=== PATIENT | female | born 1990 | race Caucasian/White ===

== ENCOUNTER 2024-03-29 17:28 | Outpatient (CLI) | payer BC, SELFPAY | END 2024-03-29 17:29 | disposition home or self-care (01) | LOC: NFLDREF 17:29 | PROVIDERS: PCP Family Medicine; Visit Provider Registered Nurse | DX: Z34.83 Encounter for supervision of other normal pregnancy, third trimester (principal) | CPT/HCPCS: 86592 ==

== ENCOUNTER 2024-04-13 15:52 | Outpatient (CLI) | payer BC, SELFPAY ==
--- NOTE | 2024-04-13 16:00 | CRLHL7_ITS ---
For Patients: As a result of the Century Cures Act, medical imaging exams and procedure reports are released immediately into your electronic medical record. You may view this report before your referring provider. If you have questions, please contact your health care provider. INDICATION: Third trimester scan, evaluate growth. low maternal weight gain COMPARISON: 11/03/2023 TECHNIQUE: Real time dickerson scale imaging of the fetus was performed. FINDINGS: Sonographic imaging demonstrates a single living intrauterine gestation. Fetus demonstrates a regular cardiac rate of 135 beats per minute. Fetus has a vertex position. The placenta lies posteriorly. Amniotic fluid volume appears normal and there is a single deepest vertical pocket: 7.3 cm. The estimated weight is 2122gm which lies at the 86th %. BPD 42nd percentile. HC is 65th percentile. AC greater than 97th percentile. FL 41st percentile. The HC/AC ratio measures 1.00 range (0.96-1.12). IMPRESSION: Sonographic gestational age 32 weeks 5 days and sonographic due date is 06/03/2024. Sonographic age 8 days ahead of the clinical age. Estimated weight 86th percentile. Abdominal circumference greater than 97th percentile. Dictated by Tom Yañez MD @ 04/15/2024 1:39:37 PM (Electronically Signed)
== END 2024-04-13 15:53 | disposition home or self-care (01) ==
LOC: US 15:53
PROVIDERS: PCP Family Medicine; Visit Provider Obstetrics & Gynecology
DX: O26.13 Low weight gain in pregnancy, third trimester (principal); Z3A.32 32 weeks gestation of pregnancy
CPT/HCPCS: 76816

== ENCOUNTER 2024-04-28 11:37 | Outpatient (CLI) | payer BC, SELFPAY | END 2024-04-28 11:38 | disposition home or self-care (01) | LOC: NFLDREF 05-02 21:02 | PROVIDERS: PCP Family Medicine; Referring Provider Family Medicine; Visit Provider Obstetrics & Gynecology | DX: D64.9 Anemia, unspecified (principal) | CPT/HCPCS: 82728 ==

== ENCOUNTER 2024-05-12 11:19 | Outpatient (CLI) | payer BC, SELFPAY ==
[2024-05-13 12:54] LABS: Strep B DNA Probe Negative (Negative)
[2024-05-13 12:59] LABS: Strep B Susceptibility Needed? No
== END 2024-05-12 11:20 | disposition home or self-care (01) ==
LOC: NFLDREF 11:20
PROVIDERS: PCP Family Medicine; Visit Provider Obstetrics & Gynecology
DX: Z34.93 Encounter for supervision of normal pregnancy, unspecified, third trimester (principal); Z3A.35 35 weeks gestation of pregnancy
CPT/HCPCS: 87081; 87653

== ENCOUNTER 2024-05-20 09:49 | Outpatient (CLI) | payer BC, SELFPAY | END 2024-05-20 09:50 | disposition home or self-care (01) | LOC: RAD 09:51 | PROVIDERS: PCP Family Medicine; Visit Provider Obstetrics & Gynecology | DX: I35.8 Other nonrheumatic aortic valve disorders (principal) | CPT/HCPCS: 93306 ==

== ENCOUNTER 2024-05-27 17:53 | Outpatient (CLI) | payer BC, SELFPAY ==
--- NOTE | 2024-05-27 18:10 | CRLHL7_ITS ---
For Patients: As a result of the Century Cures Act, medical imaging exams and procedure reports are released immediately into your electronic medical record. You may view this report before your referring provider. If you have questions, please contact your health care provider. INDICATION: Follow-up from clinic. Non reassuring testing and stress test. COMPARISON: OB ultrasound 04/13/2024. TECHNIQUE: Ultrasound OB pelvis biophysical profile. Real time dickerson scale imaging of the fetus was performed without non-stress testing. FINDINGS: Sonographic imaging demonstrates a single living intrauterine gestation. The fetus demonstrates a regular cardiac rate of 147 beats per minute. The fetus has a cephalic orientation. The placenta lies posteriorly. Single deepest pocket measures 11.3 cm. Amniotic fluid index measures 37.3 cm. breathing movements: 2/2 Gross body movements: 2/2 tone: 2/2 Amniotic fluid volume: 2/2 Total: 8/8 IMPRESSION: 1. Normal biophysical profile score 8 out of 8. 2. Polyhydramnios with BONIFACIO measuring 37.3 cm. Dictated by Lilian Schumacher MD @ 05/27/2024 8:20:48 PM (Electronically Signed)
[2024-05-27 18:38] VITALS: BP 116/75; PULSE 116; PULSE 125; TEMP 36.8; O2SAT 96
--- NOTE | 2024-05-27 20:08 | PC.OBNST ---
NST Note NST Note Start: 05/27/24 20:03 Freq: Status: Active Protocol: Document 05/27/24 20:06 ALZ (Rec: 05/27/24 20:08 ALZ Desktop) NST Note 3 Para (# of births) 2 EDC 06/11/24 Gestational Age In Weeks & Days 37 Weeks & 6 Days Patient Presented with Complaint(s) of Other Other Complaints Sent from clinic per MD for NST and BPP Reactive Yes Appropriate for Gestational Age Yes RN Kim Garcia RN Date 05/27/24 Reactive Yes Appropriate for Gestational Age Yes YENI Syed Date 05/27/24 OB NST charge Yes Complete NST Note via Write Note Yes The provider's electronic signature indicates the NST is reactive/appropriate for gestational age. *Note to provider: If an addendum is required, open the patient's chart and click on the note under the Nurse/Allied Health tab.
== END 2024-05-27 19:35 | disposition home or self-care (01) ==
LOC: OB OUT 17:53 → OB 18:09
PROVIDERS: PCP Family Medicine; Visit Provider Obstetrics & Gynecology
DX: Z34.90 Encounter for supervision of normal pregnancy, unspecified, unspecified trimester (principal); O40.9XX0 Polyhydramnios, unspecified trimester, not applicable or unspecified
CPT/HCPCS: 59025; 76819; G0463

== ENCOUNTER 2024-07-14 11:33 | Outpatient (CLI) | payer BC, SELFPAY ==
[2024-07-17 04:48] LABS: HPV Source Cervix; HPV, High Risk by TMA Not Detected
== END 2024-07-14 11:34 | disposition home or self-care (01) ==
PROVIDERS: PCP Family Medicine; Visit Provider Physician Assistant
DX: Z12.4 Encounter for screening for malignant neoplasm of cervix (principal); Z11.51 Encounter for screening for human papillomavirus (HPV)
CPT/HCPCS: 87624; 87625; 88141; 88142